=== PATIENT | female | born 1980 | race Caucasian/White ===

== ENCOUNTER 2016-11-29 13:02 | Emergency (ER) | payer OTHER ==
[~2016-11-29] VITALS: Ht 165.1 cm; Wt 79.4 kg
[2016-11-29 13:04] VITALS: BP 152/98
[2016-11-29] MEDS ORDERED: ELIMITE60 GM TOP (13:36)
== END 2016-11-29 14:06 | disposition home or self-care (01) ==
LOC: ER 13:02
DX: F42.4 Excoriation (skin-picking) disorder (principal); F15.10 Other stimulant abuse, uncomplicated; F17.210 Nicotine dependence, cigarettes, uncomplicated; F10.99 Alcohol use, unspecified with unspecified alcohol-induced disorder